=== PATIENT | male | born 1975 | race African-American/Black ===

== ENCOUNTER 2017-06-01 04:55 | Emergency (ER) | payer SELFPAY ==
[2017-06-01] MEDS ORDERED: ASPIRIN 81 MG TABLET, CHEWABLE PO ONE (04:59)
--- NOTE | 2017-06-01 05:31 | ER Document Report ---
ED Medical Screen (RME) - General Chief Complaint: Chest Pain Stated Complaint: CHEST PAIN Time Seen by Provider: 06/01/17 05:25 Notes: 42-year-old male, chief complaint of chest pain, states it woke him out of his sleep tonight just before arrival, reported as a sharp pain that radiates up towards his neck. He denies injury. He denies history of the same. He denies any known medical history, denies any personal or family cardiac history, denies smoking, drinking, recreational drugs. He does work construction. He does state the pain is worse with movement. Pain is reduced now compared to earlier tonight. Still reports a dull sensation which is worse with movement at this time. TRAVEL OUTSIDE OF THE [place] IN LAST 30 DAYS: No - Related Data Allergies/Adverse Reactions: No Known Allergies Allergy (Verified 06/01/17 05:00) Past Medical History - Past Medical History Cardiac Medical History: Denies: Hx Coronary Artery Disease, Hx DVT, Hx Hypertension Pulmonary Medical History: Reports: Hx Pneumonia Neurological Medical History: Denies: Hx Cerebrovascular Accident, Hx Migraine, Hx Seizures Endocrine Medical History: Denies: Hx Diabetes Mellitus Type 2 Renal/ Medical History: Reports: Hx Kidney Stones. Denies: Hx Peritoneal Dialysis GI Medical History: Reports: Hx Gastroesophageal Reflux Disease Psychiatric Medical History: Denies: Hx Anxiety, Hx Attention Deficit Hyperactivity Disorder, Hx Depression Traumatic Medical History: Reports: Hx Fractures Past Surgical History: Reports: Hx Orthopedic Surgery - bilat 5th toe bone cutdown - Immunizations Immunizations up to date: No Hx Diphtheria, Pertussis, Tetanus Vaccination: No Physical Exam - Vital signs Vitals: Temp Pulse Resp BP Pulse Ox 97.7 F 74 18 141/92 H 100 06/01/17 05:00 06/01/17 05:00 06/01/17 05:00 06/01/17 05:00 06/01/17 05:00 - Respiratory Respiratory status: No respiratory distress Breath sounds: Normal. No: Decreased air movement, Wheezing - Cardiovascular Rhythm: Regular. No: Tachycardia Heart sounds: Normal auscultation, S1 appreciated, S2 appreciated Course - Vital Signs Vital signs: Temp Pulse Resp BP Pulse Ox 97.7 F 74 21 H 141/92 H 100 06/01/17 05:00 06/01/17 05:00 06/01/17 05:09 06/01/17 05:00 06/01/17 05:00
[2017-06-01 05:41] LABS: ABSOLUTE EOSINOPHILS # (AUTO) 0.2 10^3/uL (0.0-0.6); ABSOLUTE LYMPHOCYTES (AUTO) 1.8 10^3/uL (0.5-4.7); ABSOLUTE MONOCYTES (AUTO) 0.5 10^3/uL (0.1-1.4); ABSOLUTE NEUT (AUTO) 3.9 10^3/uL (1.7-8.2); BASOPHILS % (AUTO) 0.6 % (0-2); EOSINOPHILS % (AUTO) 3.6 % (0-6); HEMATOCRIT 44.2 % (37.9-51.0); HEMOGLOBIN 14.9 g/dL (13.5-17.0); HGB HCT DIFFERENCE 0.5; LYMPHOCYTES % (AUTO) 27.7 % (13-45); MEAN CORPUSCULAR HEMOGLOBIN 25.9 pg (27.0-33.4); MEAN CORPUSCULAR HGB CONC 33.8 g/dL (32.0-36.0); MEAN CORPUSCULAR VOLUME 77 fl (80-97); MONOCYTES % (AUTO) 8.1 % (3-13); RED BLOOD COUNT 5.78 10^6/uL (4.35-5.55); RED CELL DISTRIBUTION WIDTH 14.9 % (11.5-14.0); WHITE BLOOD COUNT 6.5 10^3/uL (4.0-10.5)
--- NOTE | 2017-06-01 05:50 | RADIOLOGY REPORT (SQ) ---
EXAM DESCRIPTION: CHEST SINGLE VIEW COMPLETED DATE/TIME: 06/01/2017 5:23 am REASON FOR STUDY: chest pain COMPARISON: None. EXAM PARAMETERS: NUMBER OF VIEWS: One view. TECHNIQUE: Single frontal radiographic view of the chest acquired. RADIATION DOSE: NA LIMITATIONS: None. FINDINGS: LUNGS AND PLEURA: No dictation, pneumothorax or pleural effusion. MEDIASTINUM AND HILAR STRUCTURES: No masses. Contour normal. HEART AND VASCULAR STRUCTURES: Heart normal in size. No overt vascular congestion. BONES: No acute findings. HARDWARE: None in the chest. IMPRESSION: No acute radiographic finding in the chest. TECHNICAL DOCUMENTATION: JOB ID: [id number]
[2017-06-01 05:59] LABS: ALANINE AMINOTRANSFERASE 37 U/L (21-72); ALBUMIN 3.9 g/dL (3.5-5.0); ALKALINE PHOSPHATASE 58 U/L (38-126); ANION GAP 10 (5-19); ASPARTATE AMINO TRANSFERASE 28 U/L (17-59); BILIRUBIN,DIRECT 0.5 mg/dL (0.0-0.4); BILIRUBIN,TOTAL 0.5 mg/dL (0.2-1.3); BLOOD UREA NITROGEN 12 mg/dL (7-20); CALCIUM 8.6 mg/dL (8.4-10.2); CARBON DIOXIDE 25 mmol/L (22-30); CHLORIDE 106 mmol/L (98-107); CREATINE KINASE 305 U/L (55-170); CREATININE RESULT 0.94 mg/dL (0.52-1.25); GLUCOSE 127 mg/dL (75-110); POTASSIUM 4.6 mmol/L (3.6-5.0); SODIUM 141.4 mmol/L (137-145); TOTAL PROTEIN 6.9 g/dL (6.3-8.2)
[2017-06-01 06:07] LABS: CREATINE KINASE MB 1.36 ng/mL (<4.55)
[2017-06-01 06:20] LABS: TROPONIN I < 0.012 ng/mL
--- NOTE | 2017-06-01 06:43 | ER Document Report ---
ED Cardiac - General Mode of Arrival: Ambulatory Information source: Patient TRAVEL OUTSIDE OF THE [place] IN LAST 30 DAYS: No - HPI Patient complains to provider of: Chest pain Chest pain radiation location: Back, Neck Associated symptoms: Other - see above <DYAN SANTILLAN - Last Filed: 06/01/17 10:10> <MACO SUAREZ - Last Filed: 06/01/17 13:47> - General Chief Complaint: Chest Pain Stated Complaint: CHEST PAIN Time Seen by Provider: 06/01/17 05:25 Notes: Patient is a 42 year old male who presents to the ED with complaints of sudden onset chest pain that woke him up out of his sleep this morning. Patient states the pain is radiating into his neck and into his back. He has never had this pain before. Patient does have a history of reflux and states that he ate bojangles last night prior to going to bed and he also drinks a lot of soda. He is having some epigastric pain. He is not having any pain currently. Patient states his last bowel movement was just before he came in and it was normal. He denies any urinary symptoms. (DYAN SANTILLAN) - Related Data Allergies/Adverse Reactions: No Known Allergies Allergy (Verified 06/01/17 05:00) Past Medical History - General Information source: Patient - Social History Smoking Status: Never Smoker Chew tobacco use (# tins/day): No Frequency of alcohol use: None Drug Abuse: None Family History: Reviewed & Not Pertinent Patient has suicidal ideation: No Patient has homicidal ideation: No Pulmonary Medical History: Reports: Hx Pneumonia Renal/ Medical History: Reports: Hx Kidney Stones GI Medical History: Reports: Hx Gastroesophageal Reflux Disease Traumatic Medical History: Reports: Hx Fractures Past Surgical History: Reports: Hx Orthopedic Surgery - bilat 5th toe bone cutdown - Immunizations Immunizations up to date: No Hx Diphtheria, Pertussis, Tetanus Vaccination: No <DYAN SANTILLAN - Last Filed: 06/01/17 10:10> Review of Systems - Review of Systems Constitutional: No symptoms reported EENT: No symptoms reported Cardiovascular: See HPI, Chest pain Respiratory: No symptoms reported Gastrointestinal: See HPI, Abdominal pain - epigastric Genitourinary: See HPI, Dysuria Male Genitourinary: No symptoms reported Musculoskeletal: No symptoms reported Skin: No symptoms reported Hematologic/Lymphatic: No symptoms reported Neurological/Psychological: No symptoms reported <DYAN SANTILLAN - Last Filed: 06/01/17 10:10> Physical Exam - General General appearance: Appears well, Alert In distress: None - HEENT Head: Normocephalic, Atraumatic Eyes: Normal Extraocular movements intact: Yes Pupils: PERRL Neck: Normal. No: Carotid bruit - Respiratory Respiratory status: No respiratory distress Chest status: Nontender Breath sounds: Normal Chest palpation: Normal - Cardiovascular Rhythm: Regular Heart sounds: Normal auscultation Murmur: No - Abdominal Inspection: Normal Distension: No distension Bowel sounds: Normal Tenderness: Nontender - Back Back: Normal - Extremities General upper extremity: Normal inspection, Normal ROM General lower extremity: Normal inspection, Normal ROM. No: Edema - Neurological Neuro grossly intact: Yes - Psychological Associated symptoms: Normal affect, Normal mood - Skin Skin Temperature: Warm Skin Moisture: Dry Skin Color: Normal <DYAN SANTILLAN - Last Filed: 06/01/17 10:10> - Vital signs Vitals: Temp Pulse Resp BP Pulse Ox 97.7 F 74 18 141/92 H 100 06/01/17 05:00 06/01/17 05:00 06/01/17 05:00 06/01/17 05:00 06/01/17 05:00 Course - Laboratory Result Diagrams: 06/01/17 05:30 06/01/17 05:30 <DYAN SANTILLAN - Last Filed: 06/01/17 10:10> - Laboratory Result Diagrams: 06/01/17 05:30 06/01/17 05:30 <MACO SUAREZ - Last Filed: 06/01/17 13:47> - Re-evaluation Re-evalutation: 06/01/17 10:07 Patient presents emerged from a chief plan of chest pain. He said it was his epigastrium upper chest going into his neck. Said prior to arrival it was excruciating to the point where he felt like he was going to start crying. Says he has a history of reflux and is felt similar to that in the past but he does not take any medication for that. Said that he experienced it early this morning he ate a large meal prior to going to bed last night no known gallbladder problems. He does not have any history of high blood pressure diabetes high cholesterol family history of heart disease does not drink alcohol smoke tobacco on examination he is well-appearing nontoxic no acute distress had taken some aspirin at home he currently denies any chest pain. Blood pressure is hemodynamically stable he is afebrile not hypoxic no reproducible chest wall tenderness abdomen is soft no epigastric tenderness guarding rebound rigidity no signs of acute gallbladder. EKG interpreted by myself to reveal a normal sinus rhythm with no acute changes. I did 2 sets of cardiac enzymes on him they are both negative and both normal. 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 Rodriguez he is going to call their office tomorrow to be seen early this week to potentially schedule an outpatient stress test. At this time I do not think this is reflux related he does not have any epigastric tenderness signs of pancreatitis is not vomiting and discuss specific reasons for ED return sooner ( MACO SUAREZ) - Vital Signs Vital signs: Temp Pulse Resp BP Pulse Ox 97.7 F 74 16 119/79 95 06/01/17 05:00 06/01/17 05:00 06/01/17 10:01 06/01/17 10:01 06/01/17 10:01 - Laboratory Laboratory results interpreted by me: 06/01/17 06/01/17 05:30 05:30 RBC 5.78 H MCV 77 L MCH 25.9 L RDW 14.9 H Glucose 127 H Direct Bilirubin 0.5 H Creatine Kinase 305 H - EKG Interpretation by Me Additional EKG results interpreted by me: 06/01/17 10:09 EKG shows normal sinus rhythm at [address] segment elevation or depression (MACO SUAREZ) Discharge <DYAN SANTILLAN - Last Filed: 06/01/17 10:10> <MACO SUAREZ - Last Filed: 06/01/17 13:47> - Discharge Clinical Impression: Chest pain Qualifiers: Chest pain type: unspecified Qualified Code(s): R07.9 - Chest pain, unspecified Condition: Stable Disposition: HOME, SELF-CARE Additional Instructions: Chest Pain of Unclear Cause The exact cause of your chest pain isn't clear. Fortunately, there is no evidence of a dangerous medical condition. Further testing may be required to find the source of the pain. Most often, we find that this pain is coming from the chest wall -- the muscles or rib joints in the chest. But chest pain can come from the lung and lung lining, the esophagus, the heart valves or heart lining, and even the stomach or gallbladder. Rest. Eat lightly until the pain is gone. We may prescribe medicine for pain and inflammation. You should call the physician immediately if the pain radiates to the shoulder, jaw or arms; if you start to run a fever or develop a cough; or if you develop shortness of breath, or other new or alarming symptoms. Prescriptions: Sucralfate [Carafate 1 gm Tablet] 1 gm PO ACHS #12 tablet Referrals: ALLEGRA RODRIGUEZ MD [ACTIVE STAFF] - (Call Friday a.m. to be seen in follow-up on Friday or Friday return for increasing worsening or new symptoms) Scribe Attestation: 06/01/17 10:04 I personally performed the services described in the documentation reviewed the documentation recorded by my scribe in my presence and it accurately and completely records my words and actions (MACO SUAREZ) Scribe Documentation - Scribe Written by Kermit:: kermit Delatorre, 06/01/2017 <DYAN SANTILLAN - Last Filed: 06/01/17 10:10>
[2017-06-01 10:21] VITALS: BP 119/79
--- NOTE | 2017-06-01 22:04 | EKG REPORT ---
SEVERITY:- NORMAL ECG - SINUS RHYTHM : Confirmed by: Manasa Rodriguez 01-Jun-2017 22:03:31
== END 2017-06-01 10:20 | disposition home or self-care (01) ==
LOC: ER 04:55
DX: R07.9 Chest pain, unspecified (principal); Z87.442 Personal history of urinary calculi
CPT/HCPCS: 36415; 71010; 80053; 82550; 82553; 83690; 84484; 85025; 93005; 93010; 99285

== ENCOUNTER 2018-11-29 21:44 | Emergency (ER) | payer OTHER ==
--- NOTE | 2018-11-29 22:49 | RADIOLOGY REPORT (SQ) ---
EXAM DESCRIPTION: XR FOOT 3 OR MORE VIEWS COMPLETED DATE/TME: 11/29/2018 00:00 CLINICAL HISTORY: 43 years, Male, L foot painful/swollen. Unknown if injured. COMPARISON: None. NUMBER OF VIEWS: 3 TECHNIQUE: 3 views left foot LIMITATIONS: None. FINDINGS: Negative for acute fracture or dislocation. Dorsal soft tissue swelling of the distal foot. Small plantar heel spur. Minor degenerative change of the great toe. IMPRESSION: No acute osseous abnormality. Dorsal soft tissue swelling copyright 2010 [employer]- All Rights Reserved
--- NOTE | 2018-11-30 01:08 | ER Document Report ---
ED Extremity Problem, Lower - General Chief Complaint: L foot pain Stated Complaint: FOOT PAIN Time Seen by Provider: 11/30/18 00:47 Notes: Very pleasant 43-year-old male presents to the emergency department with a swollen left foot since . He was stepping off of his work truck and did not think anything of it when later in the day he noticed his boot was tight took it off and there was swelling over the M TP of the left foot. It got progressively worse over the next 24-36 hours. He has acute pain right over the MTP joint. He denies fever, chills, nausea, vomiting, any infectious symptoms. He is able to bear weight on it. TRAVEL OUTSIDE OF THE [place] IN LAST 30 DAYS: No - Related Data Allergies/Adverse Reactions: No Known Allergies Allergy (Verified 06/01/17 05:00) Past Medical History - Social History Smoking Status: Unknown if Ever Smoked Family History: Reviewed & Not Pertinent Patient has suicidal ideation: No Patient has homicidal ideation: No - Past Medical History Cardiac Medical History: Denies: Hx Coronary Artery Disease, Hx DVT, Hx Hypertension Pulmonary Medical History: Reports: Hx Pneumonia Neurological Medical History: Denies: Hx Cerebrovascular Accident, Hx Migraine, Hx Seizures Endocrine Medical History: Denies: Hx Diabetes Mellitus Type 2 Renal/ Medical History: Reports: Hx Kidney Stones. Denies: Hx Peritoneal Dialysis GI Medical History: Reports: Hx Gastroesophageal Reflux Disease Psychiatric Medical History: Denies: Hx Anxiety, Hx Attention Deficit Hyperactivity Disorder, Hx Depression Traumatic Medical History: Reports: Hx Fractures Past Surgical History: Reports: Hx Orthopedic Surgery - bilat 5th toe bone cutdown - Immunizations Immunizations up to date: No Hx Diphtheria, Pertussis, Tetanus Vaccination: No Physical Exam - Vital signs Vitals: Temp Pulse Resp BP Pulse Ox 97.9 F 70 16 133/75 H 98 11/29/18 22:17 11/29/18 22:17 11/29/18 22:17 11/29/18 22:17 11/29/18 22:17 - Notes Notes: PHYSICAL EXAMINATION: Reviewed vital signs and charting by RN GENERAL: Alert, interacts well. No acute distress. HEAD: Normocephalic, atraumatic. EYES: Pupils equal, round Extraocular movements intact. ENT: Oral mucosa moist NECK: Full range of motion. Trachea midline. EXTREMITIES: Moves all 4 extremities spontaneously. 2+ nonpitting edema left foot and ankle, acute tenderness to light palpation over the left MTP joint., No cyanosis. PSYCH: Normal affect, normal mood. SKIN: Warm, dry, normal turgor. No rashes or lesions noted. Course - Re-evaluation Re-evalutation: 11/30/18 01:06 Overall well-appearing 43-year-old male presents with left foot swelling. Unclear if this is trauma versus an inflammatory process like gout. He does have acute tenderness over the left MTP. He does have a follow-up appointment with the [facility] on Friday where he can walk into podiatry. No fevers no concerns for any septic joint. Patient is stable for discharge. - Vital Signs Vital signs: Temp Pulse Resp BP Pulse Ox 97.9 F 70 16 133/75 H 98 11/29/18 22:17 11/29/18 22:17 11/29/18 22:17 11/29/18 22:17 11/29/18 22:17 Discharge - Discharge Clinical Impression: Swelling of left foot Condition: Good Disposition: HOME, SELF-CARE Additional Instructions: You are seen in the emergency department for swelling of the left foot. It is unclear what caused this if it was trauma or an inflammatory process like gout. It is great that you are following up on Friday at the [facility] you can go in and see podiatry. They are the definitive specialty to help diagnose her condition. In the meantime you can take ibuprofen 600 mg every 6 hours for pain and swelling, wrap your foot in an Tr wrap, and will provide you with a boot that you can wear. If you develop a fever greater than 101 degrees, your foot gets red hot and you are unable to move it, or have any other concerning symptoms please immediately return to the emergency department.
[2018-11-30] MEDS ORDERED: IBUPROFEN 600 MG TABLET PO ONE (01:09)
[2018-11-30 01:24] VITALS: BP 135/83
== END 2018-11-30 01:24 | disposition home or self-care (01) ==
LOC: ER 21:44
DX: M79.89 Other specified soft tissue disorders (principal); M25.572 Pain in left ankle and joints of left foot
CPT/HCPCS: 99283

== ENCOUNTER 2019-06-07 13:13 | Emergency (ER) | payer OTHER ==
[2019-06-07] MEDS ORDERED: IBUPROFEN 800 MG TABLET PO ONE (13:49)
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
[2019-06-07 15:06] VITALS: BP 135/82
== END 2019-06-07 15:12 | disposition home or self-care (01) ==
LOC: ER 13:13
DX: S16.1XXA Strain of muscle, fascia and tendon at neck level, initial encounter (principal); S83.92XA Sprain of unspecified site of left knee, initial encounter; M50.30 Other cervical disc degeneration, unspecified cervical region; M54.9 Dorsalgia, unspecified; M25.562 Pain in left knee; V87.7XXA Person injured in collision between other specified motor vehicles (traffic), initial encounter
CPT/HCPCS: 72125; 99284